=== PATIENT | male | born 1995 | race Caucasian/White ===

== ENCOUNTER 2017-02-16 10:19 | Emergency (ER) | payer MEDICAID, OTHER ==
--- NOTE | 2017-02-16 11:41 | EDM.PDOC ---
ED HPI GENERAL MEDICAL PROBLEM - General Chief Complaint: General Stated Complaint: SOB / FATIGUE Time Seen by Provider: 02/16/17 11:15 Source of Information: Reports: Patient, Family History Limitations: Reports: No Limitations - History of Present Illness INITIAL COMMENTS - FREE TEXT/NARRATIVE: Patient awoke this morning feeling extremely fatigued and impaired. He described this condition to his as if he had drank 6 bottles of Reinaldo Dubois. He did not have any alcohol. Is not a cigarette smoker. He does not use illicit drugs. Patient does have significant decay teeth. He does have a subcutaneous abscess left side of the mandible. Onset: Today, Sudden Duration: Hour(s):, Getting Worse Location: Reports: Face, Neck Quality: Reports: Ache, Pressure Severity: Moderate Improves with: Reports: None Worsens with: Reports: None Context: Reports: Other (Dental abscess probable) Associated Symptoms: Reports: Fever/Chills, Headaches, Loss of Appetite, Malaise , Shortness of Breath, Weakness Treatments [employer]: Reports: Other Medication(s) - Related Data Allergies Allergy/AdvReac Type Severity Reaction Status Date / Time Sulfa (Sulfonamide Allergy Rash Verified 02/16/17 10:55 Antibiotics) Home Meds: Home Meds Amphetamine/Dextroamphetamine [Adderall XR] 20 mg PO BID 07/05/14 [History] Past Medical History Musculoskeletal History: Reports: Back Pain, Chronic - Past Surgical History HEENT Surgical History: Reports: Tonsillectomy Social & Family History - Tobacco Use Smoking Status *Q: Never Smoker - Alcohol Use Days Per Week of Alcohol Use: 0 - Recreational Drug Use Recreational Drug Use: No ED ROS GENERAL - Review of Systems Review Of Systems: See Below Constitutional: Reports: Fever, Chills, Malaise, Weakness, Decreased Appetite HEENT: Reports: Dental Pain, Throat Pain Respiratory: Reports: Shortness of Breath Cardiovascular: Reports: Lightheadedness Endocrine: Reports: Fatigue GI/Abdominal: Reports: Nausea : Reports: No Symptoms Musculoskeletal: Reports: Muscle Pain Skin: Reports: No Symptoms Neurological: Reports: Dizziness, Headache Psychiatric: Reports: Anxiety ED EXAM, GENERAL - Physical Exam Exam: See Below Exam Limited By: Physical Impairment General Appearance: Alert, WD/WN, Moderate Distress Eye Exam: Bilateral Eye: Normal Fundi Ears: Normal External Exam, Normal Canal, Hearing Grossly Normal Nose: Normal Inspection Throat/Mouth: Inflammation. No: Normal Teeth Head: Atraumatic, Normocephalic, Facial Swelling (Significant swelling along the left side of the mandible consistent with a large dental abscess) Neck: Limited Range of Motion, Lymphadenopathy (R), Lymphadenopathy (L), Tender Lateral. No: Normal Inspection Respiratory/Chest: No Respiratory Distress, Lungs Clear Cardiovascular: Normal Peripheral Pulses, Regular Rate, Rhythm GI/Abdominal: Soft, Non-Tender, No Organomegaly Back Exam: Normal Inspection Extremities: Normal Inspection Neurological: Alert, Oriented Psychiatric: Anxious Skin Exam: Warm, Dry, Normal Color Course - Vital Signs Last Recorded V/S: Last Vital Signs Temp 99.0 F 02/16/17 11:04 Pulse 98 02/16/17 13:49 Resp 16 02/16/17 13:49 BP 129/80 02/16/17 13:49 Pulse Ox 98 02/16/17 13:49 - Orders/Labs/Meds Orders: Active Orders 24 hr Category Date Time Status Peripheral IV Care [RC] . DIRECTED Care 02/16/17 11:43 Active CULTURE BLOOD [BC] Urgent Lab 02/16/17 11:45 Received CULTURE BLOOD [BC] Urgent Lab 02/16/17 11:55 Received Sodium Chloride 0.9% [Normal Saline] 1,000 ml Med 02/16/17 11:45 Active IV ASDIRECTED Sodium Chloride 0.9% [Normal Saline] 1,000 ml Med 02/16/17 14:00 Active IV ASDIRECTED Sodium Chloride 0.9% [Saline Flush] Med 02/16/17 11:42 Active 10 ml FLUSH ASDIRECTED PRN Blood Culture x2 Reflex Set [OM.PC] Urgent Oth 02/16/17 11:42 Ordered Peripheral IV Insertion Adult [OM.PC] Stat Oth 02/16/17 11:42 Ordered Medication Orders Sodium Chloride (Normal Saline) 1,000 mls @ 999 mls/hr IV ASDIRECTED SONYA Last Admin: 02/16/17 12:32 Dose: 999 mls/hr Sodium Chloride (Normal Saline) 1,000 mls @ 999 mls/hr IV ASDIRECTED SONYA Last Admin: 02/16/17 14:11 Dose: 999 mls/hr Sodium Chloride (Saline Flush) 10 ml FLUSH ASDIRECTED PRN PRN Reason: Keep Vein Open Last Admin: 02/16/17 12:32 Dose: 10 ml Labs: Laboratory Tests 02/16/17 02/16/17 02/16/17 Range/Units 11:50 11:50 11:50 WBC 12.9 H (4.5-11.0) K/uL RBC 4.56 (4.30-5.90) M/uL Hgb 14.3 (12.0-15.0) g/dL Hct 40.8 (40.0-54.0) % MCV 90 (80-98) fL MCH 31 (27-31) pg MCHC 35 (32-36) % Plt Count 217 (150-400) K/uL Neut % (Auto) 81 H (36-66) % Lymph % (Auto) 10 L (24-44) % Coles % (Auto) 8 H (2-6) % Eos % (Auto) 0 L (2-4) % Baso % (Auto) 0 (0-1) % ESR 14 (0-20) mm/hr Sodium 139 L (140-148) mmol/L Potassium 3.9 (3.6-5.2) mmol/L Chloride 101 (100-108) mmol/L Carbon Dioxide 26 (21-32) mmol/L Anion Gap 15.9 H (5.0-14.0) mmol/L BUN 11 (7-18) mg/dL Creatinine 1.0 (0.8-1.3) mg/dL Est Cr Clr Drug Dosing 125.54 mL/min Estimated GFR (MDRD) > 60 (>60) Glucose 99 (74-106) mg/dL Lactic Acid (0.4-2.0) mmol/L Calcium 8.9 (8.5-10.1) mg/dL Total Bilirubin 0.8 (0.2-1.0) mg/dL AST 17 (15-37) U/L ALT 15 (12-78) U/L Alkaline Phosphatase 79 (46-116) U/L C-Reactive Protein (0.0-0.3) mg/dL Total Protein 7.9 (6.4-8.2) g/dL Albumin 4.1 (3.4-5.0) g/dL Globulin 3.8 H (2.3-3.5) g/dL Albumin/Globulin Ratio 1.1 L (1.2-2.2) 02/16/17 02/16/17 Range/Units 11:50 11:50 WBC (4.5-11.0) K/uL RBC (4.30-5.90) M/uL Hgb (12.0-15.0) g/dL Hct (40.0-54.0) % MCV (80-98) fL MCH (27-31) pg MCHC (32-36) % Plt Count (150-400) K/uL Neut % (Auto) (36-66) % Lymph % (Auto) (24-44) % Coles % (Auto) (2-6) % Eos % (Auto) (2-4) % Baso % (Auto) (0-1) % ESR (0-20) mm/hr Sodium (140-148) mmol/L Potassium (3.6-5.2) mmol/L Chloride (100-108) mmol/L Carbon Dioxide (21-32) mmol/L Anion Gap (5.0-14.0) mmol/L BUN (7-18) mg/dL Creatinine (0.8-1.3) mg/dL Est Cr Clr Drug Dosing mL/min Estimated GFR (MDRD) (>60) Glucose (74-106) mg/dL Lactic Acid 0.8 (0.4-2.0) mmol/L Calcium (8.5-10.1) mg/dL Total Bilirubin (0.2-1.0) mg/dL AST (15-37) U/L ALT (12-78) U/L Alkaline Phosphatase (46-116) U/L C-Reactive Protein 5.51 H (0.0-0.3) mg/dL Total Protein (6.4-8.2) g/dL Albumin (3.4-5.0) g/dL Globulin (2.3-3.5) g/dL Albumin/Globulin Ratio (1.2-2.2) Meds: Medications Generic Name Dose Route Start Last Admin Trade Name Freq PRN Reason Stop Dose Admin Sodium Chloride 1,000 mls @ 999 mls/hr 02/16/17 11:45 02/16/17 12:32 Normal Saline IV 999 mls/hr ASDIRECTED SONYA Administration Sodium Chloride 1,000 mls @ 999 mls/hr 02/16/17 14:00 02/16/17 14:11 Normal Saline IV 999 mls/hr ASDIRECTED SONYA Administration Sodium Chloride 10 ml 02/16/17 11:42 02/16/17 12:32 Saline Flush FLUSH 10 ml ASDIRECTED PRN Administration Keep Vein Open Discontinued Medications Generic Name Dose Route Start Last Admin Trade Name Freq PRN Reason Stop Dose Admin Clindamycin Phosphate 900 mg/ 106 mls @ 200 mls/hr 02/16/17 13:54 02/16/17 14 :11 Sodium Chloride IV 02/16/17 14:25 200 mls/hr ONETIME ONE Administration Ketorolac Tromethamine 30 mg 02/16/17 13:55 02/16/17 14:11 Toradol IVPUSH 02/16/17 13:56 30 mg ONETIME ONE Administration Departure - Departure Time of Disposition: 16:19 Disposition: Home, Self-Care 01 Condition: good Clinical Impression: Dental abscess - Discharge Information Instructions: Dental Abscess, [id number] Referrals: Lev Spring MD [Primary Care Provider] - Forms: ED Department Discharge Additional Instructions: Patient will be discharged to home on: Clindamycin 300 mg 4 times a day Ibuprofen 600 mg 4 times a day [place] 5/325, one every 4 hours when necessary pain not relieved with ibuprofen. He must see a dentist soon. Keep well hydrated by drinking plenty of water. Tylenol can also be used as needed. - Problem List & Annotations (1) Dental abscess SNOMED Code(s): 083202471 Code(s): K04.7 - PERIAPICAL ABSCESS WITHOUT SINUS Status: Acute Priority : Medium Current Visit: Yes - Problem List Review Problem List Initiated/Reviewed/Updated: Yes - My Orders Last 24 Hours: My Active Orders 02/16/17 11:42 Sodium Chloride 0.9% [Saline Flush] 10 ml FLUSH ASDIRECTED PRN Blood Culture x2 Reflex Set [OM.PC] Urgent Peripheral IV Insertion Adult [OM.PC] Stat 02/16/17 11:43 Peripheral IV Care [RC] . DIRECTED 02/16/17 11:45 CULTURE BLOOD [BC] Urgent Sodium Chloride 0.9% [Normal Saline] 1,000 ml IV ASDIRECTED 02/16/17 11:55 CULTURE BLOOD [BC] Urgent 02/16/17 14:00 Sodium Chloride 0.9% [Normal Saline] 1,000 ml IV ASDIRECTED - Assessment/Plan Last 24 Hours: My Active Orders 02/16/17 11:42 Sodium Chloride 0.9% [Saline Flush] 10 ml FLUSH ASDIRECTED PRN Blood Culture x2 Reflex Set [OM.PC] Urgent Peripheral IV Insertion Adult [OM.PC] Stat 02/16/17 11:43 Peripheral IV Care [RC] . DIRECTED 02/16/17 11:45 CULTURE BLOOD [BC] Urgent Sodium Chloride 0.9% [Normal Saline] 1,000 ml IV ASDIRECTED 02/16/17 11:55 CULTURE BLOOD [BC] Urgent 02/16/17 14:00 Sodium Chloride 0.9% [Normal Saline] 1,000 ml IV ASDIRECTED
[2017-02-16] MEDS ORDERED: Sodium Chloride 0.9% 10 ML Syringe FLUSH PRN (11:42)
[2017-02-16] MEDS ORDERED: Sodium Chloride 0.9% 1,000 ML IV SCH ×2 (11:45→14:00)
[2017-02-16 13:49] VITALS: BP 129/80
[2017-02-16] MEDS ORDERED: Clindamycin Phosphate 900 MG in Sodium Chloride 0.9% 100 ML IV ONE (13:54)
[2017-02-16] MEDS ORDERED: Ketorolac 30 MG/ML SDV IVPUSH ONE (13:55)
== END 2017-02-16 16:27 | disposition home or self-care (01) ==
LOC: JP.ED 10:19
DX: K04.7 Periapical abscess without sinus (principal); Z88.2 Allergy status to sulfonamides; Z98.890 Other specified postprocedural states
CPT/HCPCS: 36415; 80053; 83605; 85025; 85651; 86140; 87040; 96361; 96365; 96375; 99285; J1885; J7030; J7040; J7050; S0077